=== PATIENT | female | born 1990 | race Caucasian/White ===

== ENCOUNTER → 2020-11-29 | Outpatient (CLI) | payer BC, OTHER ==
[2020-11-29 13:26] LABS: HEMATOCRIT 42.2 % (36.0-47.0); HEMOGLOBIN 13.8 g/dl (12.0-15.5); MEAN CORPUSCULAR HEMOGLOBIN 28.9 pg (27.0-33.0); MEAN CORPUSCULAR HGB CONC 32.7 g/dl (32.0-36.5); MEAN CORPUSCULAR VOLUME 88.3 fl (80.0-96.0); PLATELET COUNT, AUTOMATED 289 10^3/uL (150-450); RED BLOOD COUNT 4.78 10^6/uL (4.00-5.40); WHITE BLOOD COUNT 9.5 10^3/uL (4.0-10.0)
[2020-11-29 15:01] LABS: GC DNA AMPLIFICATION NEGATIVE (NEGATIVE)
[2020-11-29 16:01] LABS: HEPATITIS C VIRUS ABY INDEX < 0.0 INDEX (<0.8); HIV 1&2 SCREEN CENTAUR NEGATIVE (NEGATIVE)
== END ==
LOC: M PLALAB 11:01
PROVIDERS: ATTEND Advanced Practice Midwife
DX: Z36.89 Encounter for other specified antenatal screening (principal); Z3A.09 9 weeks gestation of pregnancy

== ENCOUNTER → 2021-01-26 | Outpatient (CLI) | payer BC, OTHER | LOC: M PLALAB 11:12 | PROVIDERS: ATTEND Advanced Practice Midwife | DX: Z34.82 Encounter for supervision of other normal pregnancy, second trimester (principal) ==

== ENCOUNTER → 2021-02-17 | Outpatient (CLI) | payer BC, OTHER ==
--- NOTE | 2021-02-17 19:40 | REP ---
INDICATION: ANATOMY. COMPARISON: None. FINDINGS: Scanning demonstrates a viable single intrauterine gestation in a cephalic lie. motion is observed and heart rate is recorded at 133 beats per minute. An anterior, grade zero placenta is seen without evidence of previa. Amniotic fluid is subjectively normal. Closed cervical length is measured at 4 cm transabdominally. No extrauterine abnormality is observed. There has been appropriate interval growth. No anomaly is seen. The following anatomic structures are identified and felt to be sonographically unremarkable: cranium, choroid plexus, cavum, cerebellum and posterior fossa, face and profile, lungs, four-chamber heart with left and right ventricular outflow tract views, diaphragm, left-sided stomach, abdominal wall cord insertion, three-vessel umbilical cord, kidneys and bladder, spine, and upper and lower extremities. Biometry chart: BPD 4.8 cm; 20 weeks 3 days Head circumference 17.4 cm; 20 weeks 0 days Abdominal circumference 16.6 cm; 21 weeks 4 days Femur length 3.3 cm; 20 weeks 2 days HC/AC ratio normal 1.05 Cephalic index normal 0.77 Estimated weight 386 grams, 0 pounds 13 ounces, 35 percentile for 21 weeks 1 days. IMPRESSION: Viable single intrauterine gestation at 20 weeks 4 days by today's composite sonographic criteria. Expected gestational age estimate based on LMP is 21 weeks is 1 days. MAGGIE by LMP 06/29/2021. No anomaly. <Electronically signed by Juan Carlos Goldman > 02/17/21 193
== END ==
LOC: M RAD 15:16
PROVIDERS: ATTEND Obstetrics & Gynecology
DX: Z36.89 Encounter for other specified antenatal screening (principal); Z3A.20 20 weeks gestation of pregnancy

== ENCOUNTER → 2021-03-27 | Outpatient (CLI) | payer BC, OTHER ==
[2021-03-27 12:20] LABS: HEMATOCRIT 37.1 % (36.0-47.0); HEMOGLOBIN 12.2 g/dl (12.0-15.5); MEAN CORPUSCULAR HEMOGLOBIN 30.3 pg (27.0-33.0); MEAN CORPUSCULAR HGB CONC 32.9 g/dl (32.0-36.5); MEAN CORPUSCULAR VOLUME 92.3 fl (80.0-96.0); PLATELET COUNT, AUTOMATED 324 10^3/uL (150-450); RED BLOOD COUNT 4.02 10^6/uL (4.00-5.40); WHITE BLOOD COUNT 12.2 10^3/uL (4.0-10.0)
[2021-03-28 12:05] LABS: GC DNA AMPLIFICATION NEGATIVE (NEGATIVE)
== END ==
LOC: M PLALAB 09:03
PROVIDERS: ATTEND Advanced Practice Midwife
DX: Z34.82 Encounter for supervision of other normal pregnancy, second trimester (principal); Z3A.21 21 weeks gestation of pregnancy

== ENCOUNTER → 2021-06-02 | Outpatient (REF) | payer BC, OTHER | LOC: M SFHCWAGY 16:33 | PROVIDERS: ATTEND Obstetrics & Gynecology | DX: Z34.03 Encounter for supervision of normal first pregnancy, third trimester (principal) ==

== ENCOUNTER 2021-06-26 00:56 | Inpatient (IN) | payer BC, OTHER ==
[~2021-06-26] VITALS: Ht 172.7 cm; Wt 79.9 kg
[2021-06-26] VITALS (57 sets, daily range): BP systolic 96–212; BP diastolic 50–142
[2021-06-26] MEDS ORDERED: PRENCHW PO (01:16)
[2021-06-26] MEDS ORDERED: OMEP40CA4 PO (01:16)
[2021-06-26] MEDS ORDERED: HOME MED LIST COMPLETE! XX SCH (01:25)
[2021-06-26 02:06] LABS: HEMATOCRIT 40.3 % (36.0-47.0); HEMOGLOBIN 13.8 g/dl (12.0-15.5); MEAN CORPUSCULAR HEMOGLOBIN 30.3 pg (27.0-33.0); MEAN CORPUSCULAR HGB CONC 34.2 g/dl (32.0-36.5); MEAN CORPUSCULAR VOLUME 88.4 fl (80.0-96.0); PLATELET COUNT, AUTOMATED 248 10^3/uL (150-450); RED BLOOD COUNT 4.56 10^6/uL (4.00-5.40); WHITE BLOOD COUNT 15.5 10^3/uL (4.0-10.0)
[2021-06-26] MEDS ORDERED: METHYLERGONOVINE MALEATE 0.2 MG/ML VIAL (J2210) IM PRN (02:40)
[2021-06-26] MEDS ORDERED: OXYTOCIN DRIP 30 UNITS in IV 1 EA IV PRN ×4 (02:40)
[2021-06-26] MEDS ORDERED: LACTATED RINGER'S 1000 ML IV PRN ×2 (02:40→05:05)
[2021-06-26] MEDS ORDERED: TRANEXAMIC ACID INJection 1,000 MG in NS 100 ML IV PRN (02:40)
[2021-06-26] MEDS ORDERED: CARBOPROST TROMETHAMINE 250 MCG/ML AMP IM PRN (02:40)
[2021-06-26] MEDS ORDERED: LIDOCAINE 1% MDV 20ML VIAL INFIL PRN (02:40)
[2021-06-26 03:24] LABS: ALBUMIN 2.6 GM/DL (3.2-5.2); BILIRUBIN,TOTAL 0.8 MG/DL (0.2-1.0); CALCIUM LEVEL 9.1 MG/DL (8.5-10.1); CREATININE FOR GFR 1.45 MG/DL (0.55-1.30); GLOMERULAR FILTRATION RATE 45.5 (>60); POTASSIUM SERUM 4.2 MEQ/L (3.5-5.1); TOTAL PROTEIN 5.9 GM/DL (6.4-8.2)
[2021-06-26] MEDS: LABETALOL 200 MG TAB PO SCH ×2 (03:36→10:05)
[2021-06-26] MEDS ORDERED: CALCIUM GLUCONATE 1,000 MG in D5W MINI-BAG PLUS 100 ML IV PRN (03:55)
[2021-06-26] MEDS ORDERED: LR 1,000 ML IV SCH (03:55)
[2021-06-26] MEDS ORDERED: MAGNESIUM *L&D* 4GM/100ML BAG (40MG/ML) As Ordered ONE (03:58)
[2021-06-26] MEDS ORDERED: OXYTOCIN DRIP 30 UNITS in IV 1 EA IV SCH (04:00)
[2021-06-26] MEDS ORDERED: LABETALOL 100MG/20ML VIAL IV SCH (04:05)
[2021-06-26] MEDS ORDERED: MAG Sulf (L&D) 4 GM/100 ML 4 GM in IV 1 EA IV ONE (04:15)
[2021-06-26] MEDS ORDERED: hydrALAZINE 20MG/ML 1ML VIAL (J0360 PER 20MG) IV SCH (04:15)
[2021-06-26] MEDS: MAG Sulf (OBGYN) 20GM/500ML 20,000 MG in IV 1 EA IV SCH (04:29)
[2021-06-26] MEDS ORDERED: FENTANYL 2MCG/ML ROPIVACAINE 0.2% IN 0.9% NACL 100ML IVBAG As Ordered ONE (04:38)
[2021-06-26] MEDS ORDERED: diphenhydrAMINE 50MG/ML VIAL (J1200) IV PRN (05:05)
[2021-06-26] MEDS ORDERED: FENTANYL/ROPIVACAINE/NACL BAG 100 ML EPIDURAL SCH (05:05)
[2021-06-26] MEDS ORDERED: NALOXONE INJ 0.4MG/1ML VIAL (J2310 PER 1MG) IV PRN (05:05)
[2021-06-26] MEDS ORDERED: ePHEDrine SULFATE 25 MG/5 ML(5MG/ML) SYRINGE IV PRN (05:05)
[2021-06-26] MEDS ORDERED: REFRIGERATOR IV KEYS XX PRN (05:05)
[2021-06-26] MEDS ORDERED: EPIDURAL/PCA KEYS XX PRN (05:05)
[2021-06-26] MEDS ORDERED: EPIDURAL COMMENT XX SCH (05:05)
[2021-06-26] MEDS ORDERED: ONDANSETRON 4MG/2ML VIAL IV PRN (05:05)
[2021-06-26] MEDS ORDERED: OXYTOCIN 30 UNITS IN 0.9% NaCl 500ML IV BAG (J2590) As Ordered ONE (05:47)
[2021-06-26] MEDS ORDERED: RHOGAM 300 MCG (1500 IU) INJ (J2790) IM SCH (08:35)
[2021-06-26] MEDS ORDERED: MEASLES,MUMPS,RUBELLA VACCINE INJ (MMR-II) (90707) SC SCH (08:35)
[2021-06-26] MEDS ORDERED: DOCUSATE SODIUM 100MG CAPSULE PO PRN (08:35)
[2021-06-26] MEDS: PRENATAL VITAMINS CHEWABLE TABLET PO SCH (09:00)
[2021-06-26 09:30] LABS: HEMOGLOBIN 13.3 g/dl (12.0-15.5); MEAN CORPUSCULAR HEMOGLOBIN 30.4 pg (27.0-33.0); MEAN CORPUSCULAR HGB CONC 34.1 g/dl (32.0-36.5); MEAN CORPUSCULAR VOLUME 89.2 fl (80.0-96.0); PLATELET COUNT, AUTOMATED 221 10^3/uL (150-450); RED BLOOD COUNT 4.37 10^6/uL (4.00-5.40)
[2021-06-26 09:56] LABS: ALBUMIN 2.5 GM/DL (3.2-5.2); BILIRUBIN,TOTAL 0.7 MG/DL (0.2-1.0); CALCIUM LEVEL 8.8 MG/DL (8.5-10.1); CREATININE FOR GFR 1.46 MG/DL (0.55-1.30); GLOMERULAR FILTRATION RATE 45.1 (>60); POTASSIUM SERUM 4.6 MEQ/L (3.5-5.1); TOTAL PROTEIN 5.5 GM/DL (6.4-8.2)
[2021-06-26] MEDS ORDERED: DIBUCAINE 1% OINTMENT 30GM TOP PRN (12:15)
[2021-06-26] MEDS: LR 1,000 ML IV SCH ×2 (12:30→14:37)
[2021-06-26] MEDS ORDERED: TRANEXAMIC ACID 100 MG/ML 10ML VIAL ONE (12:45)
[2021-06-26] MEDS: IBUPROFEN 600MG TAB PO PRN (16:55)
[2021-06-26] MEDS ORDERED: ENOXAPARIN 60MG/0.6ML SYRINGE (J1650 PER 10MG) SC SCH (20:00)
[2021-06-26 22:04] LABS: HEMOGLOBIN 11.9 g/dl (12.0-15.5); MEAN CORPUSCULAR HEMOGLOBIN 29.5 pg (27.0-33.0); MEAN CORPUSCULAR VOLUME 86.8 fl (80.0-96.0); PLATELET COUNT, AUTOMATED 183 10^3/uL (150-450); RED BLOOD COUNT 4.03 10^6/uL (4.00-5.40); WHITE BLOOD COUNT 19.8 10^3/uL (4.0-10.0)
[2021-06-26 22:33] LABS: BILIRUBIN,TOTAL 0.6 MG/DL (0.2-1.0); CREATININE FOR GFR 1.42 MG/DL (0.55-1.30); GLOMERULAR FILTRATION RATE 46.6 (>60); URIC ACID 5.9 MG/DL (2.6-6.0)
[2021-06-27] VITALS (11 sets, daily range): BP systolic 117–144; BP diastolic 67–88
[2021-06-27] MEDS: LR 1,000 ML IV SCH (00:08)
[2021-06-27] MEDS: MAG Sulf (OBGYN) 20GM/500ML 20,000 MG in IV 1 EA IV SCH (01:29)
[2021-06-27] MEDS: IBUPROFEN 600MG TAB PO PRN ×2 (01:30→14:32)
[2021-06-27] MEDS: PRENATAL VITAMINS CHEWABLE TABLET PO SCH (09:21)
[2021-06-27] MEDS: LABETALOL 200 MG TAB PO SCH ×2 (09:22→19:59)
[2021-06-27] MEDS ORDERED: ACETAMINOPHEN 500 MG TAB PO PRN (17:40)
[2021-06-28 06:11] VITALS: BP 129/78
[2021-06-28] MEDS: PRENATAL VITAMINS CHEWABLE TABLET PO SCH (09:42)
[2021-06-28] MEDS: LABETALOL 200 MG TAB PO SCH ×2 (09:43→22:28)
[2021-06-28 10:00] VITALS: BP 133/87
[2021-06-28] MEDS: IBUPROFEN 600MG TAB PO PRN ×2 (10:40→18:04)
[2021-06-28 11:00] VITALS: BP 133/87
[2021-06-28 18:00] VITALS: BP 136/84
[2021-06-28 22:00] VITALS: BP 121/67
[2021-06-29 02:00] VITALS: BP 103/55
[2021-06-29 06:00] VITALS: BP 133/68
[2021-06-29 08:51] VITALS: BP 126/74
[2021-06-29] MEDS: LABETALOL 200 MG TAB PO SCH (08:51)
[2021-06-29] MEDS: PRENATAL VITAMINS CHEWABLE TABLET PO SCH (08:51)
[2021-06-29 10:00] VITALS: BP 114/58
[2021-06-29] MEDS ORDERED: COLA100C5 PO (10:27)
[2021-06-29] MEDS ORDERED: IBUP-1022 PO (10:27)
[2021-06-29] MEDS ORDERED: ACET-683 PO (10:27)
[2021-06-29] MEDS ORDERED: LABE20TAB PO (10:27)
== END 2021-06-29 11:15 | disposition home or self-care (01) | DRG 542 ==
LOC: M LDO 00:56 → M LDI 01:30 → M OBS 11:49
PROVIDERS: ADMIT Obstetrics & Gynecology; ATTEND Obstetrics & Gynecology
PROC: 10E0XZZ Delivery of Products of Conception, External Approach (ICD-10-PCS; principal; 2021-06-26)
PROC: 0DQR0ZZ Repair Anal Sphincter, Open Approach (ICD-10-PCS; 2021-06-26)
DX: O14.14 Severe pre-eclampsia complicating childbirth (principal); O70.20 Third degree perineal laceration during delivery, unspecified; Z37.0 Single live birth; Z3A.39 39 weeks gestation of pregnancy

== ENCOUNTER → 2021-12-19 | Outpatient (REF) | payer BC, OTHER ==
[~2021-12-19] MED LIST: ACET-683 PO; COLA100C5 PO; IBUP-1022 PO; LABE20TAB PO; OMEP40CA4 PO; PRENCHW PO
[2021-12-19 17:40] LABS: BASO % 0.8 % (0.0-1.0); EOS # 0.2 10^3/uL (0.0-0.5); HEMATOCRIT 40.3 % (36.0-47.0); HEMOGLOBIN 12.8 g/dl (12.0-15.5); LYMPH # 1.2 10^3/uL (1.5-5.0); LYMPH % 24.6 % (24.0-44.0); MEAN CORPUSCULAR HEMOGLOBIN 28.3 pg (27.0-33.0); MEAN CORPUSCULAR HGB CONC 31.8 g/dl (32.0-36.5); MEAN CORPUSCULAR VOLUME 89.2 fl (80.0-96.0); MONO # 0.4 10^3/uL (0.0-0.8); MONO % 7.9 % (2.0-8.0); NEUTROPHILS # 3.1 10^3/uL (1.5-8.5); NEUTROPHILS % 63.3 % (36.0-66.0); PLATELET COUNT, AUTOMATED 267 10^3/uL (150-450); RED BLOOD COUNT 4.52 10^6/uL (4.00-5.40); WHITE BLOOD COUNT 4.9 10^3/uL (4.0-10.0)
[2021-12-19 18:32] LABS: ALBUMIN 4.1 GM/DL (3.2-5.2); ALT/SGPT 17 U/L (12-78); BILIRUBIN,TOTAL 0.5 MG/DL (0.2-1.0); BLOOD UREA NITROGEN 9 MG/DL (7-18); CALCIUM LEVEL 9.3 MG/DL (8.5-10.1); CARBON DIOXIDE LEVEL 31 MEQ/L (21-32); CHLORIDE LEVEL 106 MEQ/L (98-107); CREATININE FOR GFR 0.74 MG/DL (0.55-1.30); GLOMERULAR FILTRATION RATE > 60.0 (>60); GLUCOSE, FASTING 71 MG/DL (70-100); POTASSIUM SERUM 4.4 MEQ/L (3.5-5.1); SODIUM LEVEL 140 MEQ/L (136-145)
== END ==
LOC: M SFHCCLAY 15:06
PROVIDERS: ATTEND Family Medicine
DX: R23.3 Spontaneous ecchymoses (principal)

== ENCOUNTER → 2022-10-01 | Outpatient (CLI) | payer BC ==
[2022-10-01 14:08] LABS: HEMATOCRIT 40.8 % (36.0-47.0); HEMOGLOBIN 13.6 g/dl (12.0-15.5); MEAN CORPUSCULAR HEMOGLOBIN 28.9 pg (27.0-33.0); MEAN CORPUSCULAR HGB CONC 33.3 g/dl (32.0-36.5); MEAN CORPUSCULAR VOLUME 86.6 fl (80.0-96.0); PLATELET COUNT, AUTOMATED 280 10^3/uL (150-450); RED BLOOD COUNT 4.71 10^6/uL (4.00-5.40); WHITE BLOOD COUNT 7.8 10^3/uL (4.0-10.0)
[2022-10-01 14:39] LABS: URIC ACID 2.3 MG/DL (3.1-7.8)
[2022-10-01 14:41] LABS: LDH LACTATE DEHYDROGENASE 140 U/L (120-246)
[2022-10-01 14:42] LABS: ALT/SGPT 15 U/L (7.0-40); AST/SGOT < 8 U/L (<34); BILIRUBIN,TOTAL 0.9 MG/DL (0.3-1.2); CREATININE FOR GFR 0.64 MG/DL (0.55-1.30); GLOMERULAR FILTRATION RATE > 60.0 (>60); TOTAL PROTEIN,RANDOM URINE < 6.0 MG/DL (0.0-14.0)
[2022-10-01 15:33] LABS: GC DNA AMPLIFICATION NEGATIVE (NEGATIVE)
[2022-10-02 22:49] LABS: HIV 1&2 SCREEN NEGATIVE (NEGATIVE)
[2022-10-02 22:58] LABS: HEPATITIS C VIRUS ABY INDEX 0.08 INDEX (<0.8)
== END ==
LOC: M PLALAB 10:00
PROVIDERS: ATTEND Advanced Practice Midwife
DX: Z34.91 Encounter for supervision of normal pregnancy, unspecified, first trimester (principal)

== ENCOUNTER → 2022-12-18 | Outpatient (CLI) | payer BC | LOC: M WHC 10:21 | PROVIDERS: ATTEND Advanced Practice Midwife | DX: Z34.92 Encounter for supervision of normal pregnancy, unspecified, second trimester (principal) ==

== ENCOUNTER → 2023-02-13 | Outpatient (CLI) | payer BC ==
[2023-02-13 13:38] LABS: HEMATOCRIT 35.6 % (36.0-47.0); HEMOGLOBIN 11.9 g/dl (12.0-15.5); MEAN CORPUSCULAR HEMOGLOBIN 30.2 pg (27.0-33.0); MEAN CORPUSCULAR HGB CONC 33.4 g/dl (32.0-36.5); MEAN CORPUSCULAR VOLUME 90.4 fl (80.0-96.0); PLATELET COUNT, AUTOMATED 236 10^3/uL (150-450); RED BLOOD COUNT 3.94 10^6/uL (4.00-5.40); WHITE BLOOD COUNT 8.5 10^3/uL (4.0-10.0)
[2023-02-13 15:09] LABS: GC DNA AMPLIFICATION NEGATIVE (NEGATIVE)
== END ==
LOC: M PLALAB 08:31
PROVIDERS: ATTEND Advanced Practice Midwife
DX: O10.012 Pre-existing essential hypertension complicating pregnancy, second trimester (principal)

== ENCOUNTER 2023-03-27 09:02 | Outpatient (CLI) | payer BC ==
[~2023-03-27] VITALS: Ht 172.7 cm; Wt 74.8 kg
[2023-03-27 09:38] VITALS: BP 133/75; O2SAT 100
[2023-03-27] MEDS ORDERED: ECOT81TA5 PO (09:46)
[2023-03-27] MEDS ORDERED: HOME MED LIST COMPLETE! XX SCH (09:50)
[2023-03-27 09:55] VITALS: BP 124/78
[2023-03-27 10:09] VITALS: BP 119/73
[2023-03-27 10:24] VITALS: BP 118/74
[2023-03-27 10:39] VITALS: BP 115/76
[2023-03-27] MEDS ORDERED: BETAMETHASONE SOLUSPAN 6MG/ML 5ML VIAL IM STA (10:43)
[2023-03-27 10:54] VITALS: BP 125/78
== END 2023-03-27 11:10 ==
LOC: M LDO 09:02
PROVIDERS: ATTEND Advanced Practice Midwife
DX: O10.013 Pre-existing essential hypertension complicating pregnancy, third trimester (principal); Z87.59 Personal history of other complications of pregnancy, childbirth and the puerperium; Z3A.32 32 weeks gestation of pregnancy
CPT/HCPCS: 59025; G0463

== ENCOUNTER → 2023-04-01 | Outpatient (CLI) | payer OTHER ==
[~2023-04-01] MED LIST changes: +ECOT81TA5 PO
== END ==
LOC: M WHC 08:35
PROVIDERS: ATTEND Advanced Practice Midwife
DX: O10.013 Pre-existing essential hypertension complicating pregnancy, third trimester (principal); Z3A.33 33 weeks gestation of pregnancy

== ENCOUNTER → 2023-05-03 | Outpatient (CLI) | payer OTHER | LOC: M WHC 13:01 | PROVIDERS: ATTEND Advanced Practice Midwife | DX: O10.013 Pre-existing essential hypertension complicating pregnancy, third trimester (principal); Z3A.38 38 weeks gestation of pregnancy ==

== ENCOUNTER 2023-05-10 08:09 | Inpatient (IN) | payer OTHER ==
[2023-05-10] VITALS (18 sets, daily range): BP systolic 121–157; BP diastolic 68–88; O2SAT 96–97
[~2023-05-10] VITALS: Ht 172.7 cm; Wt 77.7 kg
[2023-05-10] MEDS ORDERED: PEPC1TAB5 PO (08:30)
[2023-05-10] MEDS ORDERED: PEPC10TA6 PO (08:31)
[2023-05-10] MEDS ORDERED: LACTATED RINGER'S 1000 ML IV STA (08:32)
[2023-05-10] MEDS ORDERED: OXYTOCIN DRIP 30 UNITS in IV 1 EA IV PRN (08:35)
[2023-05-10] MEDS ORDERED: TRANEXAMIC ACID INJection 1,000 MG in NS 100 ML IV PRN (08:35)
[2023-05-10] MEDS ORDERED: LIDOCAINE 1% MDV 20ML VIAL INFIL PRN (08:35)
[2023-05-10] MEDS ORDERED: CARBOPROST TROMETHAMINE 250 MCG/ML AMP IM PRN (08:35)
[2023-05-10] MEDS ORDERED: HOME MED LIST COMPLETE! XX SCH (08:50)
[2023-05-10] MEDS: miSOPROStol 50MCG 1/2 TABLET PO SCH ×2 (09:03→13:23)
[2023-05-10 09:08] LABS: HEMATOCRIT 39.2 % (36.0-47.0); HEMOGLOBIN 13.5 g/dl (12.0-15.5); MEAN CORPUSCULAR HEMOGLOBIN 29.9 pg (27.0-33.0); MEAN CORPUSCULAR HGB CONC 34.4 g/dl (32.0-36.5); MEAN CORPUSCULAR VOLUME 86.9 fl (80.0-96.0); PLATELET COUNT, AUTOMATED 238 10^3/uL (150-450); RED BLOOD COUNT 4.51 10^6/uL (4.00-5.40); WHITE BLOOD COUNT 10.9 10^3/uL (4.0-10.0)
[2023-05-10] MEDS ORDERED: OXYTOCIN DRIP 30 UNITS in IV 1 EA IV SCH (18:25)
[2023-05-10] MEDS: LR 1,000 ML IV SCH (18:33)
[2023-05-10] MEDS ORDERED: NALOXONE INJ 0.4MG/1ML VIAL IV PRN (18:40)
[2023-05-10] MEDS ORDERED: FENTANYL/ROPIVACAINE/NACL BAG 100 ML EPIDURAL SCH ×2 (18:40)
[2023-05-10] MEDS ORDERED: ePHEDrine SULFATE 25 MG/5 ML(5MG/ML) SYRINGE IVP PRN (18:40)
[2023-05-10] MEDS ORDERED: diphenhydrAMINE 50MG/ML VIAL IV PRN (18:40)
[2023-05-10] MEDS ORDERED: EPIDURAL/PCA KEYS XX PRN (18:40)
[2023-05-10] MEDS ORDERED: LR 500 ML IV PRN (18:40)
[2023-05-10] MEDS ORDERED: ONDANSETRON 4MG 2ML VIAL IV PRN (18:40)
[2023-05-11] VITALS (11 sets, daily range): BP systolic 133–175; BP diastolic 61–89; O2SAT 97–99
[2023-05-11] MEDS: LR 1,000 ML IV SCH (00:50)
[2023-05-11] MEDS ORDERED: METHYLERGONOVINE MALEATE 0.2 MG TAB PO PRN (03:10)
[2023-05-11] MEDS ORDERED: ACETAMINOPHEN TAB 650MG DOSE (2X325MG) PO PRN (03:10)
[2023-05-11] MEDS ORDERED: DIBUCAINE 1% OINTMENT 30GM TOP PRN (03:10)
[2023-05-11] MEDS ORDERED: IBUPROFEN 600MG TAB PO PRN (03:10)
[2023-05-11] MEDS ORDERED: ANUSOL HC CREAM 30GM TOP PRN (03:10)
[2023-05-11] MEDS ORDERED: RHOGAM 300MCG (1500IU) INJ IM SCH (03:10)
[2023-05-11] MEDS ORDERED: MOM 30ML SUSPENSION UDC PO PRN (03:10)
[2023-05-11] MEDS: IBUPROFEN 800 MG TAB PO PRN ×3 (06:00→21:01)
[2023-05-11] MEDS: PRENATAL VITAMINS CHEWABLE TABLET PO SCH (09:35)
[2023-05-11] MEDS: DOCUSATE SODIUM 100MG CAPSULE PO SCH ×2 (09:35→21:01)
[2023-05-11] MEDS: ACETAMINOPHEN 500 MG TAB PO PRN ×3 (09:36→23:39)
[2023-05-12 05:42] VITALS: BP 113/55; O2SAT 97
[2023-05-12] MEDS: IBUPROFEN 800 MG TAB PO PRN (05:55)
[2023-05-12] MEDS: DOCUSATE SODIUM 100MG CAPSULE PO SCH (07:55)
[2023-05-12] MEDS: PRENATAL VITAMINS CHEWABLE TABLET PO SCH (07:55)
[2023-05-12 08:06] VITALS: BP 113/55; TEMP 97.7; O2SAT 97
[2023-05-12] MEDS ORDERED: ACET-683 PO (08:45)
[2023-05-12] MEDS ORDERED: IBUP-1022 PO (08:45)
[2023-05-13] MEDS ORDERED: MEASLES,MUMPS,RUBELLA VACCINE INJ (MMR-II) SC.IMMUN ONE (09:00)
== END 2023-05-12 15:00 | disposition home or self-care (01) | DRG 560 ==
LOC: M LDI 08:09 → M OBS 05-11 04:23
PROVIDERS: ADMIT Advanced Practice Midwife; ATTEND Advanced Practice Midwife
PROC: 3E0P7GC Introduction of Other Therapeutic Substance into Female Reproductive, Via Natural or Artificial Opening (ICD-10-PCS; 2023-05-10)
PROC: 10E0XZZ Delivery of Products of Conception, External Approach (ICD-10-PCS; principal; 2023-05-11)
PROC: 0HQ9XZZ Repair Perineum Skin, External Approach (ICD-10-PCS; 2023-05-11)
DX: O10.02 Pre-existing essential hypertension complicating childbirth (principal); O69.81X0 Labor and delivery complicated by cord around neck, without compression, not applicable or unspecified; Z3A.39 39 weeks gestation of pregnancy; O70.0 First degree perineal laceration during delivery; Z37.0 Single live birth; Z79.82 Long term (current) use of aspirin; Z79.899 Other long term (current) drug therapy

== ENCOUNTER → 2024-06-09 | Outpatient (CLI) | payer BC ==
[~2024-06-09] MED LIST changes: +PEPC10TA6 PO; +PEPC1TAB5 PO
== END ==
LOC: M CLY 14:21
PROVIDERS: ATTEND Family Medicine
DX: M54.6 Pain in thoracic spine (principal); M54.50 Low back pain, unspecified; M53.3 Sacrococcygeal disorders, not elsewhere classified

== ENCOUNTER → 2024-06-09 | Outpatient (CLI) | payer BC | LOC: M CLY 14:11 | PROVIDERS: ATTEND Family Medicine | DX: M54.6 Pain in thoracic spine (principal); M54.50 Low back pain, unspecified; M53.3 Sacrococcygeal disorders, not elsewhere classified ==

== ENCOUNTER → 2025-01-19 | Outpatient (REF) | payer BC ==
[~2025-01-19] MED LIST changes: -IBUP-1022 PO; +IBUP600T42 PO
[2025-01-21 15:42] LABS: HPV APTIMA Not Detected (Not Detected)
== END ==
LOC: M SFHCWAGY 15:14
PROVIDERS: ATTEND Advanced Practice Midwife
DX: Z01.419 Encounter for gynecological examination (general) (routine) without abnormal findings (principal)

== ENCOUNTER → 2025-03-30 | Outpatient (REF) | payer BC ==
[2025-04-01 17:03] LABS: HPV APTIMA Not Detected (Not Detected)
== END ==
LOC: M SFHCWAGY 15:13
PROVIDERS: ATTEND Advanced Practice Midwife
DX: Z12.4 Encounter for screening for malignant neoplasm of cervix (principal)